=== PATIENT | male | born 1995 | race Caucasian/White ===

== ENCOUNTER 2018-06-27 14:03 | Emergency (ER) | payer OTHER ==
[~2018-06-27] VITALS: Ht 177.8 cm; Wt 86.4 kg
[2018-06-27 14:26] VITALS: BP 141/84; TEMP 97.3
[2018-06-27] MEDS ORDERED: APRESOLINE 10MG10 MG PO (15:46)
[2018-06-27] MEDS ORDERED: LEXAPRO 5MG5 MG PO (15:46)
[2018-06-27] MEDS ORDERED: CEPHALEXIN500 M1 PO (17:18)
[2018-06-27 17:53] VITALS: PULSE 80
== END 2018-06-27 17:55 | disposition home or self-care (01) ==
LOC: COL.ER 14:03
DX: S61.411A Laceration without foreign body of right hand, initial encounter (principal); W26.0XXA Contact with knife, initial encounter; Y92.009 Unspecified place in unspecified non-institutional (private) residence as the place of occurrence of the external cause
CPT/HCPCS: Q4021